=== PATIENT | female | born 1975 | race Caucasian/White ===

== ENCOUNTER 2025-08-11 14:06 | Emergency (ER) | payer OTHER ==
[~2025-08-11] VITALS: Ht 170.2 cm; Wt 77.1 kg
[2025-08-11 14:22] VITALS: BP 107/75; TEMP 98.2
--- NOTE | 2025-08-11 14:40 | NUR ---
Wound care provided by EMT
[2025-08-11] MEDS ORDERED: TDAP [DIPH/PERTUSSIS/TET] 0.5 ML VIAL IM ONE (14:43)
[2025-08-11] MEDS: BACI/NEOM/POLY B OINT PKT 1 UDPKT PACKET TP ONE (14:45)
[2025-08-11] MEDS ORDERED: IBUP-1490 PO (14:47)
[2025-08-11] MEDS ORDERED: IBUPROFEN 600 MG TABLET ONE (14:50)
[2025-08-11] MEDS: IBUPROFEN 600 MG TABLET PO ONE (14:53)
[2025-08-11] MEDS: TDAP [DIPH/PERTUSSIS/TET] 0.5 ML VIAL IM ONE (14:53)
--- NOTE | 2025-08-11 14:54 | NUR ---
Patient discharged to home in stable condition. Written and verbal after care instructions given. Patient verbalizes understanding of instruction.
[2025-08-11 14:55] VITALS: O2SAT 98
== END 2025-08-11 14:55 | disposition home or self-care (01) ==
LOC: ER 14:08
DX: S01.81XA Laceration without foreign body of other part of head, initial encounter (principal); W01.198A Fall on same level from slipping, tripping and stumbling with subsequent striking against other object, initial encounter; Y93.89 Activity, other specified; Y92.89 Other specified places as the place of occurrence of the external cause; Y99.9 Unspecified external cause status
CPT/HCPCS: 99283; 90471; 90715; A6403